=== PATIENT | female | born 1975 | race Caucasian/White ===

== ENCOUNTER 2024-09-24 09:45 | Outpatient (CLI) | payer BC, SELFPAY ==
--- NOTE | ~2024-09-24 | MM_ITS ---
EXAMINATION: MM screening anthony BI w gian HISTORY: Screening mammogram, family history of breast cancer in her mother. TECHNIQUE: Craniocaudal and mediolateral oblique 3-D tomosynthesis images were obtained and synthetic 2-D images were generated. CAD analysis was submitted and interpreted. COMPARISON: No prior mammogram is available for comparison at this institution. BREAST PARENCHYMAL COMPOSITION:Dense: The breasts are heterogeneously dense, which may obscure small masses. FINDINGS: There is a 2 cm low-density oval mass in the lower left subareolar region. No mass lesion o r distortion evident in the right breast. No suspicious microcalcifications. IMPRESSION: 2 cm left subareolar breast mass. Spot compression views and ultrasound recommended for further eval uation. BI-RADS Category 0: Incomplete: Needs additional imaging evaluation. Reviewed, dictated and finalized at [facility]. RAGE STEWARD IMPRESSION: 2 cm left subareolar breast mass. Spot compression views and ultrasound recomm ended for further evaluation. BI-RADS Category 0: Incomplete: Needs additional imaging evaluation.
== END 2024-09-24 09:46 | disposition home or self-care (01) ==
PROVIDERS: Visit Provider Obstetrics & Gynecology
DX: Z12.31 Encounter for screening mammogram for malignant neoplasm of breast (principal); R92.8 Other abnormal and inconclusive findings on diagnostic imaging of breast
CPT/HCPCS: 77063; 77067

== ENCOUNTER 2024-10-16 13:06 | Outpatient (CLI) | payer BC, SELFPAY ==
--- NOTE | ~2024-10-16 | MMUS_ITS ---
EXAMINATION: MM diagnostic anthony LT w gian, US breast LT limited HISTORY: Left periareolar mass TECHNIQUE: Additional 3-D tomosynthesis images of the left breast were performed and synthetic 2-D im ages were generated. CAD analysis was submitted and interpreted. High resolution Limited left breast ultrasound was performed. COMPARISON: 09/24/2024 BREAST PARENCHYMAL COMPOSITION: Dense: The breasts are heterogeneously dense, which may obscure small masses FINDINGS: MAMMOGRAPHIC FINDINGS: There is a low-density mass in the lower central left breast anteriorly near the nipple. No suspiciou s calcifications or architectural distortion. ULTRASOUND: Limited left breast ultrasound: At 6:00 near the nipple there is a 2.1 cm cyst corresponding to the m ammographic finding. No sonographic evidence for malignancy. IMPRESSION: 1. No evidence for malignancy in the left breast. Benign finding. 2. Routine yearly screening mammogram and regular clinical breast examination are recommended. BI-RADS Category 1: Negative Reviewed, dictated and finalized at location B. REPAIRER IMPRESSION: 1. No evidence for malignancy in the left breast. Benign finding. 2. Routine yearly screening mammogram and regular clinical breast examination a re recommended. BI-RADS Category 1: Negative
== END 2024-10-16 13:07 | disposition home or self-care (01) ==
PROVIDERS: Visit Provider Obstetrics & Gynecology
DX: R92.8 Other abnormal and inconclusive findings on diagnostic imaging of breast (principal)
CPT/HCPCS: 76642; 77061; 77065; G0279

== ENCOUNTER 2025-06-16 10:11 | Outpatient (CLI) | payer OTHER, BC, SELFPAY ==
--- NOTE | ~2025-06-16 | MM_ITS ---
EXAMINATION: MM diagnostic anthony BI w gian, US breast RT limited INDICATION: 50-year old female; we'll has right breast lump with tenderness 2 weeks ago at about 6:00 subareolar region. She does not have the lump now but the tenderness persists. COMPARISON: 10/16/2024 and 09/24/2024 TECHNIQUE: Digital Breast Tomosynthesis CC, MLO views with spot compression views of Both breast wer e obtained with computer-aided detection to assist in interpretation of the study. MAMMOGRAM FINDINGS: The breasts are heterogeneously dense, which may obscure small masses. There is a group of punctate calcifications that spans 0.4 cm in the inferior medial right breast. In the superior lateral at posterior depth within the left breast there is a group of punctate calcif ications that spans 0.5 cm associated with a focal asymmetry. There are no other suspicious masses, calcifications, architectural distortion or other abnormalities in Right breast. No mammographic abnormality correlates to the area of breast pain. RIGHT BREAST ULTRASOUND FINDINGS: Targeted ultrasound at the area of the patient's focal pain in the Inferior Right breast reveals a 0. 3 cm simple cyst at 6:00 location, 4 cm from the nipple. Additional 0.3 cm cyst is seen at 3:00 locat ion, 4 cm from the nipple. IMPRESSION: 1. Indeterminate calcifications associated with a focal asymmetry in the superior lateral left breast . Biopsy is recommended. 2. Probably benign right breast calcifications in the inferior medial location. 2. Right breast simple cyst at 6:00 location correlates to the area of patient's focal pain. RECOMMENDATION: Stereotactic core needle biopsy left breast calcifications. 6 month follow-up right breast calcifications. Reviewed, dictated and finalized at location [facility]. IMPRESSION: 1. Indeterminate calcifications associated with a focal asymmetry in the superi or lateral left breast. Biopsy is recommended. 2. Probably benign right breast calcifications in the inferior medial location. 2. Right breast simple cyst at 6:00 location correlates to the area of patient' s focal pain. RECOMMENDATION: Stereotactic core needle biopsy left breast calcifications. 6 month follow-up right breast calcifications.
--- OUTSIDE RECORDS SUMMARY | 2025-06-16 10:33 | XMS_ITS | Clinical Summary ---
Author Organization [facility] Medical Address [facility] [place] [address] Care Team Providers Care Checkroom Attendant Name Role Phone Unavailable Primary Care Provider Unavailabl e Source Comments [facility],non-owned Affiliates and Associated Physician Practices is amultiple site organization consisting of ambulatory clinics and hospital sitesin [place], [place], [place] and [place]. This disclosure is being madepursuant to the Care Everywhere program and may not contain all information available regarding this patient. Last updated 18.[facility] Medical Allergies Active Allergy Reactions Criticality Noted Date Comments Prednisone Psychiatric Medium 07/14/2021 Medications * Be aware that medications may not be up to date on this document. Alwaysverify current medications with the patient. Vit-Fe Fumarate-FA ( VITAMIN) 28-0.8 MG tablet Take 1 Tab by mouth daily. Active ferrous sulfate 325 (65 FE) MG tablet Take 1 Tab by mouth 2 times daily with breakfast and dinner. 60 Tab 3 1 Active docusate sodium (COLACE) 100 MG capsule Take 1 Cap by mouth 2 times daily. 60 Cap 3 1 Active oxycodone-aceta minophen (PERCOCET) 5-325 MG tablet Take 1 Tab by mouth every 6 hours as needed for Pain. 20 Tab 0 1 Active ibuprofen (MOTRIN) 600 MG tablet Take 1 Tab by mouth every 6 hours as needed for Pain. 30 Tab 1 1 Active levonorgestrel (MIRENA, 52 MG,) 20 MCG/24HR IUD by Intrauterine route as directed Active Active Problems Problem Noted Date Diagnosed Date Other dyspnea and respiratory abnormality 2010 History of LTCS 12/30/2010 acute blood loss ANEMIA 12/25/2010 Placenta previa 12/23/2010 Overview (12/25/2010): Vaginal bleeding noted 12/22/10 Given the patient's presentation with cramping and a near syncopal episode, almost a day before bleeding and the subchorionic clot seen on ultrasound, it may be that a marginal fundal abruption came first, followed by vaginal bleeding, which was not painless. Subchorionic hemorrhage 12/23/2010 Overview (02/24/2011): As of 02/24/2011; subchorionic hemorrhage is no longer seen. Amniotic fluid has a slighty hazy diffuse echogenicity consistent with prior leakage of blood across the membranes. No evidence of placenta acreta. The anterior placenta remains as a central PLACENTA PREVIA. Supervision of high-risk 12/23/2010 Overview (12/31/2010): Dating by: by Last Menstrual Period and confirmatory scan at 6 weeks.; Labs: AB+/immune/-/- HIV: non-reactive GC/CT: negative/negative Pap smear: Normal.ppt Urine Culture: 12/23/10 contaminated, multiple species. Re-collect if indicated. GCT: elevated 150, with normal GTT GBS:12/23/10 Negative Herpes Overview (12/23/2010): valtrex suppression Immunizations Immunization Administration Dates Next Due TDAP (7yrs+) 03/18/2011 TETANUS 10/13/2008 Family History Medical History Relation Name Comments Cancer Maternal Aunt 2 aunts with c ervical cancer Diabetes Maternal Grandmother Cancer Mother cervical 11 yea rs ago Relation Name Status Comments Maternal Aunt Maternal Grandmother Mother Social History Tobacco Use Types Packs/Day Years Used Date Smoking Tobacco: Former Cigarettes Alcohol Use Standard Drinks/Week Comments No 0 (1 standard drink = 0.6 oz pur e alcohol) Comments Unknown Sex and Gender Information Value Date Recorded Sex Assigned at Not on file Legal Sex Female 5:33 AM [employer] Gender Identity Not on file Sexual Orientation Not on file Last Filed Vital Signs Vital Sign Reading Time Taken Comments Blood Pressure 118/58 07/14/2021 5:04 PM CDT Pulse 98 07/14/2021 5:04 PM CDT Temperature 36.9 C (98.5 F) 07/14/2021 5:04 PM CDT Respiratory Rate 16 07/14/2021 5:04 PM CDT Oxygen Saturation 98% 07/14/2021 5:04 PM CDT Inhaled Oxygen Concentration - - Weight 70.3 kg (155 lb) 07/14/2021 5:04 PM CDT Height 160 cm (5' 3) 07/14/2021 5:04 PM CDT Body Mass Index 27.46 07/14/2021 5:04 PM CDT Plan of Treatment Health Maintenance Due Date Last Done Comments COLOGUARD (AGES 45-75) - COL ON CA SCREENING 1977 COLON MONITORING 1977 COLONOSCOPY - COLON CA SCREENING 1977 CT COLONOGRAPHY - COLON CA SCREENING 1977 Colorectal Cancer Screening 1977 FIT - COLON CA SCREENING 1977 FLEX SIG - COLON CA SCREENING 1977 LIPID TESTING 1977 MAMMOGRAM 1977 HIV SCREENING 1992 HEPATITIS C SCREENING 03/20/1995 HEPATITIS B VACCINE (1 of 3 - 19+ 3-dose series) 1996 DTAP/TDAP/TD VACCINES (3 - T d or Tdap) 03/18/2021 03/18/2011, 10/13/2008 SCREENING FOR DIABETES 07/14/2021 1, 12/27/2010, 12/23/2010 COVID-19 VACCINE (2023-2 5 season) 2024 02/24/2021, 01/14/2021 DEPRESSION SCREENING 11/13/2024 INFLUENZA VACCINE (#1) 2025 , 08/03/2013, 11/21/2012 ZOSTER VACCINE (1 of 2) 2027 HIB VACCINE Aged Out No longer eligi ble based on patient's age to complete this topic HPV VACCINE Aged Out No longer eligi ble based on patient's age to complete this topic MENINGOCOCCAL (Group B) VACCINE SHARED DECISION-MAKING Aged Out No longer eligible based on patient's age to complete this topic MENINGOCOCCAL GROUPS A/C/Y/W VACCINE Aged Out No longer eligible b ased on patient's age to complete this topic PNEUMOCOCCAL VACCINE Aged Out No long er eligible based on patient's age to complete this topic Procedures Procedure Name Priority Date/Time Associated Diagnosis Comments BASIC METABOLIC PANEL (CALCIUM TOTAL) STAT 03/15/2011 5:45 AM CDT from Last 3 Months or Most Recently Relevant to Health Maintenance Results * (ABNORMAL) BASIC METABOLIC PANEL (CALCIUM TOTAL) (03/15/2011 5:45 AM CDT) Sodium 139 137 - 145 mmol/L [facility] Potassium 3.2(L) 3.6 - 5.0 mmol/L [facility] Chloride 109(H) 98 - 107 mmol/L [facility] BUN 3(L) 7 - 17 mg/dl [facility] Creatinine 0.48(L) 0.52 - 1.04 mg/dl [facility] Glucose 97 65 - 105 mg/dl [facility] CO2 18(L) 22 - 30 mmol/L [facility] Calcium 8.4 8.4 - 10.2 mg/dl [facility] eGFR by MDRD 149 >60 mL/min/1.7 3m2 [facility] Comment eGFR [facility] Comment: The eGFR does not apply to patients who are younger than 18 or older than 70. BLOOD SPECIMEN / Unknown 03/15/2011 5:45 AM CDT 03/15/2011 5:56 AM CDT Rebeca Morton MD LAB - CHEMISTRY ORDERABLES Final Result [facility] [address] [place] [address] from Last 3 Months or Most Recently Relevant to Health Maintenance [place] [address] [place] [address] Advance Directives * Full Code (Latest Code Status on File) Date Activated Date Inactivated Comments 03/15/2011 5:47 AM 03/19/2011 12:34 AM * Full Code Date Activated Date Inactivated Comments 12/23/2010 2:57 PM 01/15/2011 1:45 AM
== END 2025-06-16 10:12 | disposition home or self-care (01) ==
PROVIDERS: Visit Provider Obstetrics & Gynecology
DX: R92.8 Other abnormal and inconclusive findings on diagnostic imaging of breast (principal); N64.4 Mastodynia
CPT/HCPCS: 76642; 77062; 77066; G0279